=== PATIENT | male | born 1980 | race African-American/Black ===

== ENCOUNTER 2020-03-06 16:00 | Emergency (ER) | payer SELFPAY ==
--- NOTE | 2020-03-06 16:08 | PC.NURSE ---
Zach forde DISCUSSED WITH PATIENT AND PATIENT DECIDED TO GO TO ER FOR EVALUATION
== END 2020-03-06 16:01 | disposition left against medical advice (07) ==
PROVIDERS: Emergency Provider Registered Nurse
DX: Z53.21 Procedure and treatment not carried out due to patient leaving prior to being seen by health care provider (principal)
CPT/HCPCS: 99199

== ENCOUNTER 2020-03-06 16:25 | Emergency (ER) | payer OTHER, SELFPAY ==
--- NOTE | ~2020-03-06 | XR_ITS ---
EXAMINATION: XR chest 2V DATE: 03/06/2020 18:13 INDICATION: Mid chest pain. TECHNIQUE: Frontal and lateral views of the chest were obtained. COMPARISON: None. FINDINGS: The chest demonstrates clear lungs without pneumonia, pleural effusion, or pneumothorax. Th e heart size is normal. IMPRESSION: 1. No acute cardiopulmonary disease. Reviewed, dictated and finalized at location A.
[2020-03-06 16:39] VITALS: BP 177/109; PULSE 93; RESP 16; TEMP 37.6; O2SAT 99
--- NOTE | 2020-03-06 17:39 | ECG_ITS ---
Measurements Intervals [place] Rate: 89 P: 39 NC: 144 QRS: 30 QRSD: 91 T: 45 QT: 360 QTc: 439 Interpretive Statements SINUS RHYTHM ST ELEVATION IN ANTERIOR LEADS- CONSIDER PERICARDITIS OR EARLY REPOLARIZATION ABNORMAL ECG Electronically Signed On 03-06-2020 20:54:21 CDT by Gustavo Maya D.O.
[2020-03-06 17:49] VITALS: BP 166/109; PULSE 96; PULSE 98; RESP 22; O2SAT 98
[2020-03-06 18:09] LABS: Basophils Absolute Auto 0.1 K/mm3 (0.0-0.1); Basophils Percent Auto 0.5 % (0.2-1.2); Eosinophils Absolute Auto 0.3 K/mm3 (0-0.3); Eosinophils Percent Auto 2.7 % (0-4.4); Hematocrit 36.5 % (42.0-52.0); Hemoglobin 12.4 g/dL (14.0-18.0); Immature Granulocyte Absolute 0.04 K/mm3 (0.00-0.031); Immature Granulocyte Percent A 0.4 % (0-0.5); Lymphocytes Absolute Auto 2.89 K/mm3 (0.9-3.2); Lymphocytes Percent Auto 26.2 % (18.3-44.2); Mean Corpuscular Hemoglobin 29.4 pg (26-34); Mean Corpuscular Volume 86.5 fl (80-100); Mean Platelet Volume 10.2 fl (7.4-10.4); Monocytes Percent Auto 8.8 % (2.6-8.5); Neutrophils Absolute Auto 6.8 K/mm3 (1.3-6.7); Neutrophils Percent Auto 61.4 % (45.5-73.1); Platelet Count Result 315 k/mm3 (150-375); Red Blood Count 4.22 M/mm3 (4.6-6.20); Red Cell Distribution Width 13.6 % (11.5-14.5)
[2020-03-06 18:20] LABS: Blood Urea Nitrogen 17 mg/dL (9-20); Calcium 9.9 mg/dL (8.4-10.2); Carbon Dioxide 25 mmol/L (22-30); Chloride 100 mmol/L (98-107); Estimated CRCL calculation 74 ml/min; Estimated Glomerular Filt Rate > 60; Glucose 92 mg/dL (75-110); Potassium 3.9 mmol/L (3.4-5.0); Sodium 135 mmol/L (137-145)
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
[2020-03-06 18:30] LABS: INR 1.1; Prothrombin Time 13.4 Seconds (11.1-14.7)
[2020-03-06 18:31] LABS: Partial Thromboplastin Time 27.9 SECONDS (22.3-36.8); Troponin I < 0.012 ng/mL (0.000-0.034)
[2020-03-06 18:36] LABS: D Dimer 0.27 ug/mL (<0.48)
[2020-03-06 18:45] VITALS: BP 167/112; PULSE 84; RESP 26; O2SAT 97
[2020-03-06] MEDS: FAMOTIDINE 20 MG/2 ML VIAL IV PUSH (18:51)
[2020-03-06 19:34] VITALS: BP 139/99; PULSE 82; RESP 20; O2SAT 97
[2020-03-06 21:17] LABS: Troponin I 0.014 ng/mL (0.000-0.034)
[2020-03-06 21:30] VITALS: BP 164/97; PULSE 80; RESP 20; O2SAT 98
[2020-03-06 22:15] VITALS: BP 162/99; PULSE 90; RESP 20; O2SAT 99
== END 2020-03-06 22:35 | disposition home or self-care (01) ==
PROVIDERS: Physician Assistant; Emergency Provider Emergency Medicine
DX: R07.9 Chest pain, unspecified (principal)
CPT/HCPCS: 36415; 71046; 80048; 84484; 85025; 85380; 85610; 85730; 93005; 96365; 96375; 99284; J0131

== ENCOUNTER 2021-08-05 10:38 | Emergency (ER) | payer OTHER, SELFPAY ==
[2021-08-05 11:23] VITALS: BP 220/112; PULSE 89; RESP 18; TEMP 36.9; O2SAT 100
[2021-08-05 12:58] VITALS: BP 171/105; PULSE 81; RESP 18; TEMP 37.1; O2SAT 98
--- NOTE | 2021-08-05 13:09 | PC.NURSE ---
pt states he woke up with puffy eyes and has been itching and noticing small bumps two weeks, he states the only thing he took taken Advil today 0900 for a headache, pt states this has never happened before
[2021-08-05] MEDS: FAMOTIDINE 20 MG TABLET PO (14:21)
[2021-08-05] MEDS: methylPREDNISolone SOD SUCC 125 MG VIAL IM (14:21)
[2021-08-05] MEDS: diphenhydrAMINE HCl CAP 25 MG CAPSULE 50 MG PO (14:21)
--- NOTE | 2021-08-05 16:05 | PC.NURSE ---
Pt states he can get bp medication at home and has been prescribed bp medication but has not been taking it, pt states he isn't having any headaches, neuro deficits or chest pain, he states he feels better no longer itching as bad
[2021-08-05 16:24] VITALS: BP 170/114; PULSE 80; RESP 17; O2SAT 98
--- NOTE | 2021-08-05 16:38 | ED.GENADULT ---
HPI - General Adult General Chief complaint: Unspecified Stated complaint: R eye swelling,bumps all over body Time Seen by Provider: 08/05/21 13:53 Source: patient Mode of arrival: ambulatory Limitations: no limitations History of Present Illness HPI narrative: Patient 40-year-old male with chief complaint of allergic reaction with red raised pruritic bumps that his arms, but noticed this morning that he is also having swelling of his eyelids. Patient states that he is not aware of any exposure to any new soaps lotions or other irritants. Patient denies any swelling or itching of his oral mucosa or throat. He denies any shortness of breath or chest pain. Patient reports the he has not started any new medications. The only medication he has been on today is Advil, as he had a slight headache after drinking vodka last night which has remitted. Patient reports history of hypertension for which he is not taking his daily medications. He denies any other health issues. Related Data Allergies Allergy/AdvReac Type Severity Reaction Status Date / Time No Known Allergies Allergy Verified 08/05/21 11:26 Review of Systems Review of Systems: CONSTITUTIONAL: Denies fever, chills, or sweats. EYES: Denies visual changes, redness, or discharge. ENT: Denies rhinorrhea, congestion, sore throat, or otalgia. CARDIOVASCULAR: Denies chest pain, palpitations, or edema. RESPIRATORY: Denies cough or dyspnea. GASTROINTESTINAL: Denies abdominal pain, nausea, vomiting, or diarrhea. GENITOURINARY: Denies dysuria or hematuria. SKIN: Reports rash or itching. MUSCULOSKELETAL: Denies back pain, joint pain, or myalgia. NEUROLOGIC: Denies headache, numbness, dizziness, or weakness. PSYCHIATRIC: Denies anxiety or depression. [facility] Past Medical History Medical History (Updated 08/05/21 @ 15:55 by Rehan Taylor PA-C) No active medical problems Family History Family History (Updated 05/26/18 @ 14:15 by DOCTOR UNKNOWN) Mother Diabetes mellitus Hypertension Father Hypertension Social History Social History (Updated 03/06/20 @ 18:25 by Inna Olguin PA-C) Smoking status: Former smoker Smoking end date: 08/24/15 Alcohol intake: current Substance use: never Gender identity (if verbalized by the patient): Male Exam Narrative: GENERAL: Well-appearing, well-nourished, and in no acute distress. HEAD: Normocephalic, atraumatic. EYES: PERRLA and EOMI. ENT: Nares clear, no rhinorrhea or epistaxis. Mucous membranes moist. Oropharynx without tonsillar hypertrophy exudate or other lesions. Bilateral TMs pearly lange nonbulging. Airway patent. Patient speaking in clear sentences without difficulty. NECK: Supple. No adenopathy or masses. Range of motion intact. CHEST: Clear to auscultation. No respiratory distress. No wheezes rales or rhonchi HEART: Regular rate and rhythm. No murmur heard. Normal peripheral pulses. EXTREMITIES: Normal range of motion. No edema. SKIN: Slightly raised pruritic rash noted to upper extremities. Patient has swelling to eyelids and slightly the lips. There is no swelling or rash noted in oral mucosa or throat. Warm, dry, no rash. NEURO: No focal deficits. Alert and oriented x3. PSYCH: Normal mood and affect. Course Vital Signs Vital signs: Vital Signs Temperature 98.5 F 08/05/21 11:23 Pulse Rate 89 08/05/21 11:23 Respiratory Rate 18 08/05/21 11:23 Blood Pressure 220/112 H 08/05/21 11:23 Pulse Oximetry 100 08/05/21 11:23 Temperature 98.7 F 08/05/21 12:58 Pulse Rate 80 08/05/21 16:24 Respiratory Rate 17 08/05/21 16:24 Blood Pressure 170/114 H 08/05/21 16:24 Pulse Oximetry 98 08/05/21 16:[address] [facility] Narrative Medical decision making narrative: Patient given Solu-Medrol, Pepcid, Benadryl. Patient's girlfriend will be driving him home. Patient has had the symptoms and is ready to be discharged home. Patient has been instructed strict return ER
== END 2021-08-05 16:25 | disposition home or self-care (01) ==
PROVIDERS: Emergency Provider Emergency Medicine
DX: T78.40XA Allergy, unspecified, initial encounter (principal); Z87.891 Personal history of nicotine dependence
CPT/HCPCS: 96372; 99283; A9270; J2930

== ENCOUNTER 2022-09-02 09:11 | Emergency (ER) | payer OTHER, SELFPAY ==
--- NOTE | ~2022-09-02 | XR_ITS ---
EXAMINATION: XR finger 3rd RT min 2V DATE: 09/02/2022 09:43 INDICATION: Right hand third digit injury. TECHNIQUE: 4 views of right hand third digit were obtained. COMPARISON: None. FINDINGS: Bone alignment is normal. No fracture. Joint spaces are well maintained. There is a lacerat ion of the radial side of the third digit. IMPRESSION: 1. No fracture or radiopaque foreign body. Reviewed, dictated and finalized at location A. [facility] [employer] [facility]
--- NOTE | 2022-09-02 09:19 | ED.WOUNDLAC ---
HPI - Wound/Laceration General Chief Complaint: Wound/Laceration Stated Complaint: FINGER LACERATION Time Seen by Provider: 09/02/22 09:19 Source: patient and RN notes reviewed History of Present Illness HPI narrative: Patient is a 42-year-old male who presents to urgent care with complaints of a finger laceration. 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 Patient is right-hand dominant. Finger affected his right middle digit. Patient denies any care prior to arrival for the injury. No other acute complaints. No acute distress noted. Patient aware of the plan of care. Some parts of this dictation were generated by voice recognition software and may contain typographical and/or grammatical inaccuracies. Related Data Allergies Allergy/AdvReac Type Severity Reaction Status Date / Time No Known Allergies Allergy Verified 09/02/22 09:18 Review of Systems Review of Systems: CONSTITUTIONAL: Denies fever, chills, or sweats. EYES: Denies visual changes, redness, or discharge. ENT: Denies rhinorrhea, congestion, sore throat, or otalgia. CARDIOVASCULAR: Denies chest pain, palpitations, or edema. RESPIRATORY: Denies cough or dyspnea. GASTROINTESTINAL: Denies abdominal pain, nausea, vomiting, or diarrhea. GENITOURINARY: Denies dysuria or hematuria. SKIN: Reports of a right middle finger laceration MUSCULOSKELETAL: Reports pain and swelling to right fingers NEUROLOGIC: Denies headache, numbness, or weakness. All other systems reviewed are negative, except as documented in HPI. [facility] Past Medical History Medical History Essential hypertension Generalized anxiety disorder Hyperlipidemia No active medical problems Family History Family History Mother Diabetes mellitus Hypertension Father Hypertension Social History Social History Smoking end date: 08/24/15 Alcohol intake: current Substance use: never Gender identity (if verbalized by the patient): Male Comments At the time of my signature, I reviewed and agree with the nursing past medical, surgical, social, and family history. There is no relevant family history pertinent to the patient complaint. Exam Narrative: GENERAL: This is a well-nourished, well-developed patient, in no apparent distress. HEAD: normocephalic, atraumatic. EYES: PERRL. Sclera clear/white. Vision is grossly intact. EARS: External ears normal NOSE: External nose normal with no obvious nasal discharge, nares without redness, no rhinorrhea. THROAT: Mucous membranes moist NECK: Neck supple SKIN: 4 cm irregular laceration to radial aspect of right middle finger, notable subungual hematoma without direct effect to nailbed, cuticle to the radial aspect mildly affected NEURO: awake, alert, and oriented to person, place and time. There were no obvious focal neurologic abnormalities. EXTREMITIES: Positive strong right radial pulse with capillary refill less than 2 seconds. No obvious tendon defect to right middle digit. Range of motion right middle digit within normal limits. Course Course Level of Care: Express Care Visit Vital Signs Vital signs: Vital Signs Temperature 98.1 F 09/02/22 09:24 Pulse Rate 61 09/02/22 09:24 Respiratory Rate 16 09/02/22 09:24 Blood Pressure 169/110 H 09/02/22 09:24 Pulse Oximetry 98 09/02/22 09:24 Temperature 98.1 F 09/02/22 09:24 Pulse Rate 61 09/02/22 09:24 Respiratory Rate 16 09/02/22 09:24 Blood Pressure 169/110 H 09/02/22 09:24 Pulse Oximetry 98 09/02/22 09:24 Reviewed- Patient is informed that they may have pre-hypertension or hypertension based on a blood pressure reading in the department. I recommend the patient call the primary care provider listed on their
[2022-09-02 09:24] VITALS: BP 169/110; PULSE 61; RESP 16; TEMP 36.7; O2SAT 98
== END 2022-09-02 10:50 | disposition home or self-care (01) ==
PROVIDERS: Emergency Provider Nurse Practitioner Family
DX: S61.212A Laceration without foreign body of right middle finger without damage to nail, initial encounter (principal); W20.8XXA Other cause of strike by thrown, projected or falling object, initial encounter; Z87.891 Personal history of nicotine dependence; I10 Essential (primary) hypertension; E78.5 Hyperlipidemia, unspecified
CPT/HCPCS: 29130; 73140; 99213; G0463